=== PATIENT | female | born 1945 | race Caucasian/White ===

== ENCOUNTER 2016-12-29 13:00 | Inpatient (IN) | payer MEDICARE, OTHER ==
[2016-12-29 12:59] LABS: BILIRUBIN NEGATIVE (NEGATIVE); BLOOD TRACE-INTACT Ery/uL (NEGATIVE); CLARITY CLEAR (CLEAR); COLOR YELLOW (YELLOW); GLUCOSE (U) NORMAL (NORMAL); KETONE (U) NEGATIVE (NEGATIVE); LEUKOCYTES NEGATIVE Leu/uL (NEGATIVE); NITRITE NEGATIVE (NEGATIVE); PROTEIN NEGATIVE (NEGATIVE); UROBILINOGEN 0.2 mg/dL (0.2-1.0)
[2016-12-29 16:24] LABS: HCT 41.5 % (37.0-47.0); HGB 13.5 g/dl (12.5-16.0); MCH 33.5 pg (25.0-31.0); MCHC 32.5 g/dL (32.0-36.0); MPV 9.5 fL (6.0-9.5); RBC 4.03 M/uL (4.20-5.40); RDW 12.5 % (11.5-14.0); WBC 8.8 K/uL (4.0-10.5)
[2016-12-29 16:45] LABS: CREATININE 0.8 mg/dL (0.5-1.0); POTASSIUM 3.7 mmol/L (3.5-5.1)
[2016-12-30 04:08] LABS: HGB 13.2 g/dl (12.5-16.0); MCH 33.7 pg (25.0-31.0); MCHC 32.2 g/dL (32.0-36.0); MCV 104.6 fL (78.0-100.0); MPV 9.7 fL (6.0-9.5); RBC 3.92 M/uL (4.20-5.40); RDW 12.6 % (11.5-14.0); WBC 10.2 K/uL (4.0-10.5)
[2016-12-30 04:28] LABS: CREATININE 0.8 mg/dL (0.5-1.0); POTASSIUM 4.3 mmol/L (3.5-5.1)
[2016-12-31 03:59] LABS: HGB 11.7 g/dl (12.5-16.0); MCH 34.1 pg (25.0-31.0); MCHC 32.5 g/dL (32.0-36.0); MPV 9.6 fL (6.0-9.5); RBC 3.43 M/uL (4.20-5.40); RDW 12.5 % (11.5-14.0); WBC 8.7 K/uL (4.0-10.5)
[2016-12-31 04:15] LABS: POTASSIUM 3.9 mmol/L (3.5-5.1)
[2017-01-01 04:45] LABS: HCT 34.6 % (37.0-47.0); HGB 11.2 g/dl (12.5-16.0); MCH 33.9 pg (25.0-31.0); MCHC 32.4 g/dL (32.0-36.0); MCV 104.8 fL (78.0-100.0); MPV 9.8 fL (6.0-9.5); RBC 3.3 M/uL (4.20-5.40); RDW 12.4 % (11.5-14.0); WBC 7.2 K/uL (4.0-10.5)
== END 2017-01-01 15:35 | DRG 470 ==
LOC: FTCU 13:00 → FMS 12-31 09:13
PROVIDERS: Internal Medicine; ADMIT Legal Medicine
PROC: 8E0YXBZ Computer Assisted Procedure of Lower Extremity (ICD-10-PCS; 2016-12-29)
PROC: 0SRD0J9 Replacement of Left Knee Joint with Synthetic Substitute, Cemented, Open Approach (ICD-10-PCS; principal; 2016-12-29 11:30)
DX: M17.12 Unilateral primary osteoarthritis, left knee (principal); E78.5 Hyperlipidemia, unspecified; K21.9 Gastro-esophageal reflux disease without esophagitis; I44.7 Left bundle-branch block, unspecified; Z87.891 Personal history of nicotine dependence; Z85.43 Personal history of malignant neoplasm of ovary; Z88.8 Allergy status to other drugs, medicaments and biological substances; Z80.9 Family history of malignant neoplasm, unspecified
CPT/HCPCS: 36415; 73560; 80048; 80061; 81003; 84484; 86850; 86900; 86901; 88311; 93005; 94010; 97110; 97116; 97162; 97166; 97530; 97530-GP; 97535; C1776; J0131; J0697; J1885; J2270; J2274; J2405; J2704; J2795

== ENCOUNTER 2017-01-01 15:36 | Inpatient (IN) | payer MEDICARE, OTHER ==
[2017-01-09] MEDS ORDERED: LOVAZA1 GM PO (11:06)
[2017-01-09] MEDS ORDERED: CALCIUM600 MG PO (11:07)
[2017-01-09] MEDS ORDERED: FEOSOL325 MG PO (11:07)
[2017-01-09] MEDS ORDERED: PERCOCET 5/3251 TAB PO (11:13)
--- NOTE | 2017-01-09 16:42 | NUR ---
72 YEAR OLD FEMALE DC HOME S/P LEFT KNEE REPLACEMENT, A/O X3 WENT OVER DC ORDERS, R/V UNDERSTANDING
--- NOTE | 2017-01-10 10:10 | NUR ---
PT. D/C HOME THIS DATE. PT. HAS COMPLETED XARELTO THERAPY. PT. REQUESTED [facility] FOR PT/OT AND NURSING ASSESSMENT. [facility] TO DELIVER A ROLLNG WALKER UPON DISCHARGE. D/C NOTICE AND QUESTIONNAIRE GIVEN.
== END 2017-01-09 16:40 | disposition home health service (06) | DRG 561 ==
LOC: FSNU 15:36
PROVIDERS: ADMIT Internal Medicine
DX: Z47.1 Aftercare following joint replacement surgery (principal); I44.7 Left bundle-branch block, unspecified; Z96.652 Presence of left artificial knee joint; K21.9 Gastro-esophageal reflux disease without esophagitis; Z85.43 Personal history of malignant neoplasm of ovary; M19.90 Unspecified osteoarthritis, unspecified site; R94.31 Abnormal electrocardiogram [ECG] [EKG]
CPT/HCPCS: 88305; 97110; 97116; 97162; 97166; 97530; 97530-GP; 97535